=== PATIENT | female | born 1970 | race Caucasian/White ===

== ENCOUNTER 2017-11-17 18:50 | Emergency (ER) | payer SELFPAY ==
--- NOTE | 2017-11-17 19:36 | ER Document Report ---
ED Medical Screen (RME) - General Chief Complaint: Cold Symptoms Stated Complaint: COLD SYMPTOMS Time Seen by Provider: 11/17/17 19:23 TRAVEL OUTSIDE OF THE [place] IN LAST 30 DAYS: No - HPI Notes: 11/17/17 19:31 Patient is a 47-year-old female history of restless leg syndrome and tobacco abuse who presents to the ED complaining of "an elephant sitting on my chest," SOB, wheeze, dyspnea on exertion, pain on deep inspiration, body aches 4 days. Pt states that she may have had some nasal congestion the first day or so. Patient states that she does have bronchitis once here this time year. Pt does have intermittent leg pains. patient also states that she may have a low- grade temp, and feels weak. Patient denies any drug allergies. Denies any neck pain, URI, sore throat, chest pain, palpitations, syncope, cough, shortness of breath, wheeze, dyspnea, abdominal pain, nausea/vomiting/diarrhea, dysuria, hematuria, or rash. Denies prolonged travel, hormone replacement, prev dvt/pe, or immunocompromised condition. No significant cardiac history otherwise. I have treated and performed a rapid initial assessment of this patient. A comprehensive ED assessment and evaluation of the patient, analysis of test results and completion of medical decision making process will be conducted by additional ED providers. Reviewed with Dr. Tuttle who recommended at least the full work up. PHYSICAL EXAMINATION: Vitals: Pt presents tachycardic GENERAL: Well-appearing, well-nourished and in no acute distress. A&Ox4. Pt able to speak in full sentences. Chest: + tenderness to the ribs b/l and to the sternum. LUNGS: wheezes b/l. HEART: Regular rate and rhythm without murmurs, rubs, gallops. PSYCH: Normal mood, normal affect. SKIN: Warm, Dry, normal turgor, no rashes or lesions noted. - Related Data Allergies/Adverse Reactions: No Known Allergies Allergy (Verified 11/17/17 18:53) Past Medical History - Past Medical History Cardiac Medical History: Denies: Hx Coronary Artery Disease, Hx Heart Attack, Hx Hypertension Pulmonary Medical History: Reports: Hx Bronchitis Denies: Hx Asthma, Hx COPD, Hx Pneumonia Neurological Medical History: Reports: Hx Migraine, Hx Seizures - FEBRILE SEIZURES FROM AGE NB TO 5YO,. Denies: Hx Cerebrovascular Accident Renal/ Medical History: Reports: Hx Ovarian Cysts Musculoskeltal Medical History: Reports Hx Arthritis - RT KNEE, LT ANKLE Past Surgical History: Reports: Hx Section - x's3, Hx Tubal Ligation - Immunizations Immunizations up to date: Yes Hx Diphtheria, Pertussis, Tetanus Vaccination: Yes Physical Exam - Vital signs Vitals: Temp Pulse Resp BP Pulse Ox 99.2 F 116 H 16 144/69 H 96 11/17/17 18:57 11/17/17 18:57 11/17/17 18:57 11/17/17 18:57 11/17/17 18:57 Course - Vital Signs Vital signs: Temp Pulse Resp BP Pulse Ox 99.2 F 116 H 16 144/69 H 96 11/17/17 18:57 11/17/17 18:57 11/17/17 18:57 11/17/17 18:57 11/17/17 18:57
[2017-11-17] MEDS ORDERED: ASPIRIN 81 MG TABLET, CHEWABLE PO ONE (19:39)
[2017-11-17] MEDS ORDERED: IPRATROPIUM/ALBUTEROL 0.5-2.5 MG/3 ML AMPUL NEB ONE (19:40)
[2017-11-17] MEDS ORDERED: DEXAMETHASONE SOD PHOS INJ 10 MG/1 ML VIAL IM ONE (19:41)
--- NOTE | 2017-11-17 20:10 | RADIOLOGY REPORT (SQ) ---
EXAM DESCRIPTION: CHEST SINGLE VIEW COMPLETED DATE/TIME: 11/17/2017 7:59 pm REASON FOR STUDY: SOB COMPARISON: 02/20/2016. EXAM PARAMETERS: NUMBER OF VIEWS: One view. TECHNIQUE: Single frontal radiographic view of the chest acquired. RADIATION DOSE: NA LIMITATIONS: None. FINDINGS: LUNGS AND PLEURA: Mild interstitial prominence in the lower lobes. Indistinct density in the lateral right lower lobe between the posterior 8th and 9th ribs. No large pleural effusion. No pneumothorax. MEDIASTINUM AND HILAR STRUCTURES: No masses. Contour normal. HEART AND VASCULAR STRUCTURES: Heart normal in size. Normal vasculature. BONES: No acute findings. HARDWARE: None in the chest. OTHER: No other significant finding. IMPRESSION: INDISTINCT DENSITY IN THE LATERAL RIGHT LOWER LOBE COULD BE DUE TO EARLY INFILTRATE, PLE URAL THICKENING, OR SMALL PULMONARY NODULE. CT OF THE CHEST MAY BE CONSIDERED FOR MORE COMPLETE EVAL UATION. TECHNICAL DOCUMENTATION: JOB ID: [id number] [employer]- All Rights Reserved
[2017-11-17] MEDS ORDERED: METHYLPREDNISOLONE INJ 125 MG/2 ML SDV IV ONE (21:00)
[2017-11-17 21:05] LABS: ABSOLUTE MONOCYTES (AUTO) 0.6 10^3/uL (0.1-1.4); ABSOLUTE NEUT (AUTO) 9.4 10^3/uL (1.7-8.2); BASOPHILS % (AUTO) 0.4 % (0-2); EOSINOPHILS % (AUTO) 0.2 % (0-6); HEMATOCRIT 40.7 % (36.0-47.0); HEMOGLOBIN 13.9 g/dL (12.0-15.5); LYMPHOCYTES % (AUTO) 16.2 % (13-45); MEAN CORPUSCULAR HEMOGLOBIN 32.2 pg (27.0-33.4); MEAN CORPUSCULAR HGB CONC 34.2 g/dL (32.0-36.0); MEAN CORPUSCULAR VOLUME 94 fl (80-97); MONOCYTES % (AUTO) 4.8 % (3-13); RED BLOOD COUNT 4.33 10^6/uL (3.72-5.28); RED CELL DISTRIBUTION WIDTH 14.3 % (11.5-14.0); SEGMENTED NEUTROPHILS % (AUTO) 78.4 % (42-78)
[2017-11-17 21:26] LABS: ALANINE AMINOTRANSFERASE 27 U/L (9-52); ALBUMIN 4.3 g/dL (3.5-5.0); ALKALINE PHOSPHATASE 116 U/L (38-126); ANION GAP 14 (5-19); ASPARTATE AMINO TRANSFERASE 20 U/L (14-36); BILIRUBIN,DIRECT 0.1 mg/dL (0.0-0.4); BILIRUBIN,TOTAL 0.4 mg/dL (0.2-1.3); BLOOD UREA NITROGEN 6 mg/dL (7-20); CALCIUM 9.2 mg/dL (8.4-10.2); CARBON DIOXIDE 26 mmol/L (22-30); CHLORIDE 101 mmol/L (98-107); CREATINE KINASE 194 U/L (30-135); CREATININE RESULT 0.62 mg/dL (0.52-1.25); GLUCOSE 96 mg/dL (75-110); POTASSIUM 3.4 mmol/L (3.6-5.0); SODIUM 141.3 mmol/L (137-145); TOTAL PROTEIN 6.9 g/dL (6.3-8.2)
--- NOTE | 2017-11-17 21:27 | ER Document Report ---
ED General - General Chief Complaint: Cold Symptoms Stated Complaint: COLD SYMPTOMS Time Seen by Provider: 11/17/17 19:23 Notes: Patient is a 47-year-old female comes emergency department for chief complaint of cough, wheezing, tightness/pressure over the center of her chest, and mild sinus congestion. She also states that she had a fever of 100.8 earlier today. Symptoms started about 4 days ago. She states she has been exposed to her family member who has upper respiratory infection/bronchitis. Patient smokes, she denies history of COPD, she denies any daily medications. She denies lower external swelling, recent travel, any cardiovascular history. TRAVEL OUTSIDE OF THE [place] IN LAST 30 DAYS: No - Related Data Allergies/Adverse Reactions: No Known Allergies Allergy (Verified 11/17/17 18:53) Past Medical History - General Information source: Patient - Social History Smoking Status: Current Every Day Smoker Chew tobacco use (# tins/day): No Smoking Education Provided: Yes - <3 min Frequency of alcohol use: Rare Drug Abuse: None Lives with: Family Family History: Reviewed & Not Pertinent, Hypertension Patient has suicidal ideation: No Patient has homicidal ideation: No - Past Medical History Cardiac Medical History: Denies: Hx Coronary Artery Disease, Hx Heart Attack, Hx Hypertension Pulmonary Medical History: Reports: Hx Bronchitis Denies: Hx Asthma, Hx COPD, Hx Pneumonia Neurological Medical History: Reports: Hx Migraine, Hx Seizures - FEBRILE SEIZURES FROM AGE NB TO 5YO,. Denies: Hx Cerebrovascular Accident Renal/ Medical History: Reports: Hx Ovarian Cysts. Denies: Hx Peritoneal Dialysis Musculoskeltal Medical History: Reports Hx Arthritis - RT KNEE, LT ANKLE Past Surgical History: Reports: Hx Section - x's3, Hx Tubal Ligation - Immunizations Immunizations up to date: Yes Hx Diphtheria, Pertussis, Tetanus Vaccination: Yes Review of Systems - Review of Systems Constitutional: No symptoms reported EENT: No symptoms reported Cardiovascular: No symptoms reported Respiratory: See HPI Gastrointestinal: No symptoms reported Genitourinary: No symptoms reported Female Genitourinary: No symptoms reported Musculoskeletal: No symptoms reported Skin: No symptoms reported Hematologic/Lymphatic: No symptoms reported Neurological/Psychological: No symptoms reported Physical Exam - Vital signs Vitals: Temp Pulse Resp BP Pulse Ox 99.2 F 116 H 16 144/69 H 96 11/17/17 18:57 11/17/17 18:57 11/17/17 18:57 11/17/17 18:57 11/17/17 18:57 Interpretation: Normal - General General appearance: Alert In distress: None - HEENT Head: Normocephalic, Atraumatic Eyes: Normal Pupils: PERRL - Respiratory Respiratory status: No: Respiratory distress, Labored, Retractions, Tachypnea Chest status: Nontender Breath sounds: Nonproductive cough, Rhonchi, Wheezing - Cardiovascular Rhythm: Regular Heart sounds: Normal auscultation Murmur: No - Abdominal Inspection: Normal Distension: No distension Bowel sounds: Normal Tenderness: Nontender. No: Tender, Guarding - Back Back: Normal, Nontender. No: Tender - Extremities General upper extremity: Normal inspection, Nontender, Normal strength, Normal temperature General lower extremity: Normal inspection, Nontender, Normal strength, Normal temperature - Neurological Neuro grossly intact: Yes Cognition: Normal Orientation: AAOx4 [place] Coma Scale Eye Opening: Spontaneous [place] Coma Scale Verbal: Oriented [place] Coma Scale Motor: Obeys Commands [place] Coma Scale Total: 15 Speech: Normal Motor strength normal: LUE, RUE, LLE, RLE Sensory: Normal - Psychological Associated symptoms: Normal affect, Normal mood - Skin Skin Temperature: Warm Skin Moisture: Dry Skin Color: Normal Course - Re-evaluation Re-evalutation: Patient with expiratory wheezes and scattered rhonchi on exam, frequent nonproductive cough, mild congestion, reported fever this morning. Clinical picture is consistent with bronchitis and possible secondary pneumonia. Mild leukocytosis with elevation of neutrophils but no bandemia. Chest x-ray with questionable right lower lobe with differential including pneumonia and mass. I do suspect this is pneumonia based on her presentation. Patient will be treated with doxycycline and prednisone, her wheezing resolved after one DuoNeb treatment, she was given albuterol inhaler. Patient with no hypoxia, on reevaluation she has no respiratory distress, symptoms have resolved except for occasional cough. Discussed smoking cessation. Discussed the x-ray, patient given a copy of her x -ray, instructed to have a close follow-up and repeat x-ray for additional evaluation including the possibility of cancer because of her smoking history. Patient states understanding. Discussed return precautions, patient states understanding of this as well. - Vital Signs Vital signs: Temp Pulse Resp BP Pulse Ox 98.1 F 100 20 135/71 H 95 11/17/17 22:00 11/17/17 22:00 11/17/17 22:00 11/17/17 22:00 11/17/17 22:00 - Laboratory Result Diagrams: 11/17/17 20:47 11/17/17 20:47 Laboratory results interpreted by me: 11/17/17 11/17/17 20:47 20:47 WBC 12.0 H RDW 14.3 H Seg Neutrophils % 78.4 H Absolute Neutrophils 9.4 H Potassium 3.4 L BUN 6 L Creatine Kinase 194 H Discharge - Discharge Clinical Impression: Productive cough, Wheezing, Tobacco abuse Fever Qualifiers: Fever type: unspecified Qualified Code(s): R50.9 - Fever, unspecified Condition: Stable Disposition: HOME, SELF-CARE Additional Instructions: Your evaluation is most consistent with upper respiratory infection and developing pneumonia. Take the prednisone and doxycycline as prescribed, use albuterol as prescribed, drink plenty of fluids and rest. Stop smoking. Your chest x-ray is most suggestive of a pneumonia, however I recommend a repeat chest x-ray in a close follow-up with primary care to make sure there is no underlying ongoing abnormality that would require further workup to look for cancer (such as a CAT scan). Bring your report/CD with you to your next primary care appointment. Return if you worsen including spiking fever, difficulty breathing, or any other concerning symptoms. Prescriptions: Albuterol Sulfate [Proair HFA Inhalation Aerosol 8.5 gm MDI] 2 puff IH Q4H PRN # 1 mdi PRN Reason: Doxycycline Hyclate 100 mg PO BID #14 capsule Prednisone 60 mg PO DAILY #15 tablet Forms: Smoking Cessation Education, Return to Work
[2017-11-17 21:37] LABS: CREATINE KINASE MB 0.25 ng/mL (<4.55)
[2017-11-17 21:39] LABS: TROPONIN I < 0.012 ng/mL
[2017-11-17] MEDS ORDERED: DOXYCYCLINE HYCLATE 100 MG TABLET PO ONE (21:40)
[2017-11-17] MEDS ORDERED: ALBUTEROL SULFATE HFA (90 MCG/PUFF) 8 GM MDI (1 MDI/ER DISP) IH ONE (21:41)
[2017-11-17] MEDS ORDERED: HYDROCODONE/ACETAMINOPHEN 5-325 MG 6 TAB/DSPK PO PRN (21:47)
[2017-11-17 22:11] VITALS: BP 135/71
--- NOTE | 2017-11-18 08:08 | EKG REPORT ---
SEVERITY:- OTHERWISE NORMAL ECG - SINUS TACHYCARDIA : Confirmed by: Raymond Castaneda MD 18-Nov-2017 08:08:29
== END 2017-11-17 22:10 | disposition home or self-care (01) ==
LOC: ER 18:50
DX: R05 Cough (principal); R06.2 Wheezing; R50.9 Fever, unspecified; F17.200 Nicotine dependence, unspecified, uncomplicated
CPT/HCPCS: 93005; 94640; 99284; 96374; 36415; 82553; 82550; 85025; 80053; 84484; 87804; 71010; 93010; J2930; J3490; J7620